=== PATIENT | female | born 1940 | race Caucasian/White ===

== ENCOUNTER 2016-06-06 13:16 | Emergency (ER) | payer OTHER ==
[2016-06-06 13:35] VITALS: RESP 18
--- NOTE | 2016-06-06 14:11 | EDPHY ---
HPI/HX/ROS/PE/MDM Narrative: Chief complaint: Fall HPI: 76-year-old woman who tripped and fell at 10:30 a.m. this morning, landing on her arms and face. She did have some epistaxis which has since stopped. She is developed over the course of last couple hours some pain in her left elbow, left wrist, and left knee. She also has an injury to her mouth and pain on her nose. No headache. She had no loss of consciousness. She does not take any anticoagulants. No nausea or vomiting. No hearing or vision changes. No neck pain, numbness or tingling. No chest pain shortness of breath. No abdominal pain. She has been ambulating with some mild discomfort in her left knee and right foot without difficulty. ROS: 10 point Review of Systems is negative except as noted in the HPI. Physical exam: Gen: Awake, Alert, No Distress HEENT: Nose: Dry blood in bilateral nares, there is some swelling at the nasal bridge with a small abrasion. No active bleeding Eyes: PERRLA, EOMI Mouth: Moist mucosa swelling of her left lower lip with out laceration. Neck: Supple, no JVD, nontender, full range of motion without pain Chest: nontender, lungs clear to auscultation Heart: S1, S2 normal, no murmur Abd: Soft, non-tender, no guarding Back: no CVA tenderness, no midline tenderness Ext: no edema, left olecranon tenderness, decreased range of motion secondary to pain, left radial head tenderness, decreased range of motion without pain, left patellar tenderness, full range of motion knee without significant discomfort past 45. Skin: no rash Neuro: CN II-XII intact, Sensation grossly intact, Strength 5/5 in bilateral upper and lower extremities ED Course: Left wrist x-ray, no acute deformity, chronic appearing changes in the left hand. Left elbow x-ray, no acute deformity Left knee x-ray, no acute deformity 76-year-old status post mechanical fall. She is complaining primarily of left elbow pain with some mild left wrist pain and knee pain. She has some old chronic changes on her left hand x-ray otherwise nothing acute. She is ambulating unassisted in the department. She has some swelling deformity her nose is possibly might recommend the nasal fracture, however we have discussed imaging the patient does not want a CT scan or any other imaging of her nose at this time this is as she agrees this will not change our management. Will discharge with analgesia. Follow up with primary care physician in 3-4 days. General Time Seen by Provider: 06/06/16 13:53 Initial Vital Signs: Initial Vital Signs Temperature (C) 36.6 C 06/06/16 13:31 Heart Rate 66 06/06/16 13:31 Respiratory Rate 18 06/06/16 13:31 Blood Pressure 152/81 H 06/06/16 13:31 O2 Sat (%) 93 06/06/16 13:31 O2 Delivery Mode Room Air Allergies/Adverse Reactions: SOME ANTIBIOTIC Allergy (Uncoded 06/06/16 13:38) Home Medications: Medication Instructions Recorded Actos 06/06/16 Amlodipine Besylate 06/06/16 FENOFIBRATE 06/06/16 Levothyroxine 06/06/16 Losartan Potassium 06/06/16 Metformin HCl 06/06/16 Vytorin 06/06/16 Departure - Departure Disposition: Home, Routine, Self-Care Clinical Impression: Nasal contusion, Elbow contusion, Wrist pain, Knee contusion, Fall Condition: Good Instructions: Nasal Contusion (ED), Contusion in Adults (ED), Wrist Sprain (ED) , Fall Prevention (ED) Additional Instructions: You may take ibuprofen and acetaminophen as needed for pain. Follow up with her primary care physician and 3-4 days for re-evaluation. Return emergency depart for increasing pain, numbness, weakness, difficulty walking, or any other concerns. Referrals: Reece Barth MD [Primary Care Provider] - As per Instructions
[2016-06-06 15:42] VITALS: BP 137/60; PULSE 70; TEMP 97.7; O2SAT 92
--- NOTE | 2016-06-06 16:40 | DX ---
Left elbow, 3 views. History: Trauma, pain pain s/p fall Comparison examination:none available Findings: Longitudinal nondisplaced fracture involves the left radial head along the lateral margin. There is intra-articular extension. Associated hemarthrosis. No other fracture identified. Impression: Nondisplaced left radial head fracture.
--- NOTE | 2016-06-06 16:41 | DX ---
Wrist Minimum of 3 Views Left History: Trauma. Pain. Comparison exam: None available. Findings: On the lateral radiograph, there is a 9 mm fragment dorsal to the carpus with soft tissue s welling compatible with an acute avulsion fracture, likely arising from the triquetrum. No additional carpal fracture identified. Distal radius and ulna appear normal. 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 Impression: 9 mm avulsion fracture dorsal the carpus with soft tissue swelling, likely arising from the triquetrum.
--- NOTE | 2016-06-06 16:42 | DX ---
Knee 4 or More Views Left History: pain s/p fall Comparison exam: None available. Findings: No fracture identified. No joint effusion. Mild degenerative changes are present in the med ial and patellofemoral compartments. Impression: Degenerative changes. No fracture identified.
== END 2016-06-06 15:55 | disposition home or self-care (01) ==
DX: S00.33XA Contusion of nose, initial encounter (principal); S50.02XA Contusion of left elbow, initial encounter; S80.02XA Contusion of left knee, initial encounter; S00.31XA Abrasion of nose, initial encounter; S69.92XA Unspecified injury of left wrist, hand and finger(s), initial encounter; W01.0XXA Fall on same level from slipping, tripping and stumbling without subsequent striking against object, initial encounter

== ENCOUNTER → 2018-03-22 | Outpatient (CLI) | payer OTHER | LOC: FIMAGING 12:28 | PROVIDERS: ATTEND Internal Medicine | DX: Z12.31 Encounter for screening mammogram for malignant neoplasm of breast (principal) ==

== ENCOUNTER → 2018-04-04 | Outpatient (CLI) | payer OTHER ==
[~2018-04-04] MED LIST: IOPAMIDOL (ISOVUE-300) 100 ML BTL ONE
== END ==
LOC: CIMAGING 09:49
PROVIDERS: ATTEND Internal Medicine Gastroenterology
DX: R93.5 Abnormal findings on diagnostic imaging of other abdominal regions, including retroperitoneum (principal); R10.32 Left lower quadrant pain; K86.9 Disease of pancreas, unspecified; I70.0 Atherosclerosis of aorta
CPT/HCPCS: 74177; Q9967; 82565-PO

== ENCOUNTER 2018-07-03 09:49 | Inpatient (IN) | payer MEDICARE, OTHER ==
[2018-07-03] MEDS ORDERED: LR 1,000 ML IV ONE (10:00)
[2018-07-03] MEDS ORDERED: LIDOCAINE 1% 2 ML INJ ID PRN (10:00)
[2018-07-03] MEDS ORDERED: cefOXitin SODIUM 2 GM in NS 100 ML IV ONE (10:00)
[2018-07-03] MEDS ORDERED: BUPIVACAINE 0.5% 30 ML SDV ONE (10:03)
--- NOTE | 2018-07-03 11:30 | PDHPUP ---
History & Physical Update H&P update statement: This history and physical update is based on an assessment of the patient which was completed after admission or registration (within 24 hours), but prior to the surgery/procedure. H&P update: H&P reviewed & patient examined, no change in patient's condition since H&P completed
[2018-07-03] MEDS ORDERED: MIDAZOLAM 2 MG/2 ML VIAL IVP ONE (11:51)
--- NOTE | 2018-07-03 11:51 | PDANEPAE ---
ANE History of Present Illness mesenteric mass, lap poss open resection of the mass ANE Past Medical History - Cardiovascular History Hx Hypertension: Yes Hx Arrhythmias: No Hx Chest Pain: Yes Hx Coronary Artery / Peripheral Vascular Disease: No Hx CHF / Valvular Disease: No Hx Palpitations: No Cardiovascular History Comment: chest pain when anxious - Pulmonary History Hx COPD: No Hx Asthma/Reactive Airway Disease: Yes Hx Recent Upper Respiratory Infection: Yes Hx Oxygen in Use at Home: Yes O2 in Use at Home (L/minute): 1.5 L Hx Sleep Apnea: Yes Sleep Apnea Screening Result - Last Documented: Positive Pulmonary History Comment: Gets bronchitis frequently - Neurologic History Hx Cerebrovascular Accident: No Hx Seizures: No Hx Dementia: No - Endocrine History Hx Diabetes: Yes Endocrine History Comment: Type 2 DM - Renal History Hx Renal Disorders: No - Liver History Hx Hepatic Disorders: No - Neurological & Psychiatric Hx Hx Neurological and Psychiatric Disorders: Yes Neurological / Psychiatric History Comment: Anxiety - Cancer History Hx Cancer: No - Congenital Disorder History Hx Congenital Disorders: No - GI History Hx Gastrointestinal Disorders: Yes Gastrointestinal History Comment: Colon polyps, hx of diverticulitis - Surgical History Prior Surgeries: open rui. open appy. tonsillectomy. TAHBSO ANE Review of Systems Review of Systems: - Exercise capacity METS (RN): 4 METS ANE Patient History - Allergies Allergies/Adverse Reactions: SOME ANTIBIOTIC Allergy (Uncoded 06/06/16 13:38) - Home Medications Home Medications: Actos 06/06/16 [Last Taken 07/02/18] Amlodipine Besylate 06/06/16 [Last Taken 07/02/18] Levothyroxine 06/06/16 [Last Taken 07/02/18] Metformin HCl 06/06/16 [Last Taken 07/02/18] DIAZEPAM PRN 07/03/18 [Last Taken 1 Week Ago ~06/26/18] Ezetimibe 07/03/18 [Last Taken 07/02/18] Lisinopril 07/03/18 [Last Taken 07/02/18] Paxil 07/03/18 [Last Taken 07/02/18] - NPO status NPO Since - Liquids (Date): 07/02/18 NPO Since - Liquids (Time): 23:30 NPO Since - Solids (Date): 07/01/18 - Smoking Hx Smoking Status: Never smoked - Family Anes Hx Family Hx Anesthesia Complications: none known ANE Labs/Vital Signs - Vital Signs Blood Pressure: 132/75 Heart Rate: 84 Respiratory Rate: 18 O2 Sat (%): 90 Height: 157.48 cm Weight: 90.718 kg ANE Physical Exam - Airway Neck exam: FROM Mallampati Score: Class 2 Mouth exam: normal dental/mouth exam - Pulmonary Pulmonary: no respiratory distress, no rales or rhonchi - Cardiovascular Cardiovascular: regular rate and rhythym, no murmur, rub, or gallop - ASA Status ASA Status: III ANE Anesthesia Plan Anesthesia Plan: general endotracheal anesthesia Regional Anesthesia: single shot NB Total IV Anesthesia: No
[2018-07-03 11:53] LABS: PLATELET COUNT 248 10^3/uL (150-400)
[2018-07-03] MEDS ORDERED: ROCURONIUM 100 MG/10 ML VIAL ONE (12:17)
[2018-07-03] MEDS ORDERED: fentaNYL 100 MCG/2 ML INJ ONE ×2 (12:17→13:03)
[2018-07-03] MEDS ORDERED: PROPOFOL 200 MG/20 ML VIAL ONE (12:17)
[2018-07-03] MEDS ORDERED: PHENYLEPHRINE HCL 100 MCG/ML SYR ONE (12:17)
[2018-07-03] MEDS ORDERED: LIDOCAINE 2% 100 MG/5 ML SYR ONE (12:17)
--- NOTE | 2018-07-03 12:36 | PDANEPAE ---
ANE Past Medical History - Cardiovascular History Hx Hypertension: Yes Hx Arrhythmias: No Hx Chest Pain: Yes Hx Coronary Artery / Peripheral Vascular Disease: No Hx CHF / Valvular Disease: No Hx Palpitations: No Cardiovascular History Comment: chest pain when anxious - Pulmonary History Hx COPD: No Hx Asthma/Reactive Airway Disease: Yes Hx Recent Upper Respiratory Infection: Yes Hx Oxygen in Use at Home: Yes O2 in Use at Home (L/minute): 1.5 L Hx Sleep Apnea: Yes Sleep Apnea Screening Result - Last Documented: Positive Pulmonary History Comment: Gets bronchitis frequently - Neurologic History Hx Cerebrovascular Accident: No Hx Seizures: No Hx Dementia: No - Endocrine History Hx Diabetes: Yes Endocrine History Comment: Type 2 DM - Renal History Hx Renal Disorders: No - Liver History Hx Hepatic Disorders: No - Neurological & Psychiatric Hx Hx Neurological and Psychiatric Disorders: Yes Neurological / Psychiatric History Comment: Anxiety - Cancer History Hx Cancer: No - Congenital Disorder History Hx Congenital Disorders: No - GI History Hx Gastrointestinal Disorders: Yes Gastrointestinal History Comment: Colon polyps, hx of diverticulitis - Surgical History Prior Surgeries: open rui. open appy. tonsillectomy. TAHBSO ANE Review of Systems Review of Systems: - Exercise capacity METS (RN): 4 METS ANE Patient History - Allergies Allergies/Adverse Reactions: SOME ANTIBIOTIC Allergy (Uncoded 06/06/16 13:38) - Home Medications Home Medications: Actos 06/06/16 [Last Taken 07/02/18] Amlodipine Besylate 06/06/16 [Last Taken 07/02/18] Levothyroxine 06/06/16 [Last Taken 07/02/18] Metformin HCl 06/06/16 [Last Taken 07/02/18] DIAZEPAM PRN 07/03/18 [Last Taken 1 Week Ago ~06/26/18] Ezetimibe 07/03/18 [Last Taken 07/02/18] Lisinopril 07/03/18 [Last Taken 07/02/18] Paxil 07/03/18 [Last Taken 07/02/18] - NPO status NPO Since - Liquids (Date): 07/02/18 NPO Since - Liquids (Time): 23:30 NPO Since - Solids (Date): 07/01/18 - Smoking Hx Smoking Status: Never smoked - Family Anes Hx Family Hx Anesthesia Complications: none known ANE Labs/Vital Signs - Vital Signs Blood Pressure: 132/75 Heart Rate: 84 Respiratory Rate: 18 O2 Sat (%): 90 Height: 157.48 cm Weight: 90.718 kg
[2018-07-03] MEDS ORDERED: ROPIVACAINE HCL 150 MG/30 ML INJ ONE (14:23)
[2018-07-03] MEDS ORDERED: fentaNYL 100 MCG/2 ML INJ IVP PRN (14:49)
[2018-07-03] MEDS ORDERED: oxyCODONE IR 5 MG TAB PO PRN (14:49)
[2018-07-03] MEDS ORDERED: NALOXONE HCL 0.4 MG/ML INJ IVP PRN ×2 (14:49→15:19)
[2018-07-03] MEDS ORDERED: DIAZEPAM 5 MG/ML 1 ML SYR IVP PRN (14:49)
[2018-07-03] MEDS ORDERED: HYDROmorphONE/DILAUDID 2 MG/ML INJ IVP PRN (14:49)
[2018-07-03] MEDS ORDERED: ACETAMINOPHEN 500 MG TAB PO PRN (14:49)
[2018-07-03] MEDS ORDERED: MEPERIDINE 25 MG/0.5 ML AMP IVP PRN (14:49)
[2018-07-03] MEDS ORDERED: LR 500 ML IV PRN (14:49)
[2018-07-03] MEDS ORDERED: HYDROmorphONE/DILAUDID 6 MG/30 ML PCA IV PRN (15:19)
[2018-07-03] MEDS ORDERED: ONDANSETRON 4 MG/2 ML VIAL IVP PRN (15:24)
[2018-07-03] MEDS ORDERED: OXYCODONE/APAP 5/325 TAB PO PRN (15:24)
[2018-07-03] MEDS ORDERED: D50W 25 GM/50 ML SYR IVP PRN (15:26)
--- NOTE | 2018-07-03 15:26 | POSTANESTH ---
Post Anesthetic Evaluation Cardiovascular Status: Normal, Stable Respiratory Status: Normal, Stable Level of Consciousness/Mental Status: Can Participate in Eval, Alert and Oriented Pain Control: Adequate, Prn Tx Ordered Nausea/Vomiting Control: Adequate, Prn Tx Ordered Complications Possibly Related to Anesthesia: None Noted (Bilat TAP blocks with Chp, US, good visualization of 40ml .25% Rop used. Tolerated well, no pain in PACU)
[2018-07-03] MEDS: PROMETHAZINE HCL 25 MG/ML INJ IVP PRN ×2 (15:28→15:46)
--- NOTE | 2018-07-03 15:31 | POSTOPPROG ---
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
--- NOTE | 2018-07-03 17:30 | PDMN ---
Medical Necessity Medical necessity: Pt meets inpt criteria per MD order [facility] [place] [facility], Bowel Surgery : Colectomy, Partial, with or without Ostomy, 4 days, [facility] IP only list. 78 y/o w/ mesenteric mass admitted for expl laparoscopy, laparotomy, en bloc resection of mesenteric mass w/sm bowel resection, L partial colectomy, and post-op care, anticipate>2MN. Surgery pre-authed for inpt.
[2018-07-03] MEDS: KETOROLAC 15 MG/1 ML SDV IVP SCH ×3 (17:47→23:50)
[2018-07-03] MEDS: NS 1,000 ML IV SCH (18:11)
[2018-07-03] MEDS: INSULIN LISPRO 100 UNIT/ML SC SCH (18:50)
[2018-07-03] MEDS: DOCUSATE SODIUM 100 MG CAP PO SCH (19:48)
[2018-07-03] MEDS: FAMOTIDINE 20 MG/NACL 50 ML IV SCH (19:48)
[2018-07-03] MEDS: METOCLOPRAMIDE 10 MG/2 ML VIAL IV SCH (23:50)
[2018-07-04] MEDS: KETOROLAC 15 MG/1 ML SDV IVP SCH ×3 (05:36→17:30)
[2018-07-04] MEDS: METOCLOPRAMIDE 10 MG/2 ML VIAL IV SCH ×3 (05:36→17:30)
[2018-07-04] MEDS: NS 1,000 ML IV SCH ×2 (05:37→15:36)
[2018-07-04] MEDS: INSULIN LISPRO 100 UNIT/ML SC SCH ×3 (08:35→18:00)
[2018-07-04] MEDS ORDERED: ENOXAPARIN 40 MG/0.4 ML SYR SC SCH (09:00)
[2018-07-04] MEDS: FAMOTIDINE 20 MG/NACL 50 ML IV SCH ×2 (09:29→21:24)
[2018-07-04] MEDS: DOCUSATE SODIUM 100 MG CAP PO SCH ×2 (09:29→21:24)
--- NOTE | 2018-07-04 09:39 | SOAPPROG ---
SOAP Progress Note Assessment/Plan: Assessment/plan: 78 y/o F s/p ex laparoscopy, laparotomy, en bloc resection of mesenteric mass with small bowel resection and left partial colectomy POD #1 Path pending Pain controlled with toradol. Hasn't used iv dilaudid or oral percocet yet. Get oob. Ok to have sips of clears and ice chips. D/c holland this am. VTE ppx: lovenox ordered. S: No complaints. Pain controlled with toradol alone. O: Alert Afebrile VSS RRR CTAB Abdomen: soft, attp, nondistended, incision well dressed, +BS 07/04/18 09:36 Objective: Vital Signs Temp Pulse Resp BP Pulse Ox 36.8 C 78 14 129/71 H 95 07/04/18 08:07 07/04/18 08:07 07/04/18 08:07 07/04/18 08:07 07/04/18 08:07 Laboratory Results 07/04/18 05:20 07/04/18 05:20 07/03/18 07/04/18 07/05/18 05:59 05:59 05:59 Intake Total 1860 Output Total 685 Balance 1175 ICD10 Worksheet Patient Problems: Problems Problem Status Onset Clostridium difficile colitis Active
--- NOTE | 2018-07-04 19:31 | GOP ---
[f rep st] OPERATIVE REPORT DATE OF OPERATION: 07/03/2018 SURGEON: Kelvin Felix MD FABRIC PATTERN GRADER: Kandace Alcaraz PA-C ANESTHESIOLOGIST: Mary Anne Encarnacion DO PREOPERATIVE DIAGNOSIS: Mesenteric mass and umbilical hernia. 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 PROCEDURE PERFORMED: 1. Laparoscopy. 2. Laparotomy with left colectomy with splenic flexure mobilization and small-bowel resection with r esection of the mesenteric tumor and umbilical hernia repair. FINDINGS: Patient was found to have a 6 cm mass in the left colon mesentery with some attached small bowel and possible metastatic implant onto that small bowel. No other evidence of tumor throughout the abdomen. She did have diffuse adhesions preventing successful laparoscopy, and she had a small l ess than 1 cm umbilical hernia defect. ESTIMATED BLOOD LOSS: Less than 25 cc. DESCRIPTION OF PROCEDURE: The patient was taken to the operating room where she received satisfactor y general endotracheal anesthesia by Dr. Encarnacion. She was placed in the supine position, prepped and d raped in the usual sterile fashion. A periumbilical incision was made. A Veress needle was inserted. Pneumoperitoneum was established. Trocar was introduced. Laparoscope introduced. Marked adhesions were encountered. The entire omen robi and colon were attached to the anterior abdominal wall throughout the whole space. Our trocar wing d passed safely through the omentum, but there was no safe place to put another trocar. It was elect ed to convert to an open procedure at that point. Midline abdominal incision was made and carried through the linea alba. The abdomen was carefully en tered. Adhesions were tediously taken down. The omentum was dissected off the anterior abdominal wa ll and freed up from the pelvis so that the colon could be retracted back up into the upper abdomen. This allowed access to the retroperitoneum and the palpable tumor. There was an area of small bowel attachment to the tumor in the left colon mesentery. The left colon was mobilized by dividing the l ateral peritoneal reflection extending it up around the splenic flexure and across into the left sharma sverse colon, dissecting it away from the lower pole of the spleen and partially dividing portions of the omentum away from the colon wall, and retroperitoneally, the mesentery was elevated up and rotat ed medially over toward the ureter. The ureter and kidney were left in place retroperitoneally. After the tumor was adequately mobilized and appeared to be resectable, then, the small bowel crop or grain farmer d to the tumor was divided above and below this attachment with the PATTI stapler and the mesentery was divided with the Harmonic scalpel. The mesentery around the tumor was then divided with the Harmoni c scalpel and/or hemoclips with complete circumferential removal of the mass. This was removed, but it left a section of colon that was concerning for potential ischemia, so that segment of approximate ly 6 to 7 inches of left colon was divided with a PATTI staplers, and that specimen was removed as well , along with tumor. Colon anastomosis was made in an end-to-end fashion in 2 layers using 3-0 silks and 3-0 Vicryl interrupted for the anterior and posterior layers and a running inner layer of 3-0 Bashir ryl creating a good 3 fingerbreadth anastomosis. The mesentery was approximated where possible with a running 3-0 Vicryl suture. The small bowel was then reconnected using a PATTI stapler and a cross ap plication of the stapler for closure of the enterocyte. The mesentery was closed with a running 3-0 Vicryl. Suture line was reinforced with interrupted 3-0 Vicryl sutures, and the suture line was imbr icated with a running 3-0 Vicryl suture. Wound was irrigated. Hemostasis appeared to be adequate. The remainder of the abdominal exploration revealed no evidence of metastatic disease, although the l iver could not be fully evaluated because of adhesions from her previous cholecystectomy. Clean Closure protocol was used with new gloves and towels, instruments, and gowns. The abdomen was closed with a running #1 PDS suture for the linea alba, reinforced periodically with #1 Vicryl interr upted sutures. Wound was infiltrated with 0.5% Marcaine. Skin was closed with skin merari. She to lerated the procedure well. She was taken to recovery room in good condition. COMPLICATIONS: There were no complications. /[id number]/MODL
[2018-07-04] MEDS ORDERED: CEPACOL LOZENGE PO PRN (21:12)
[2018-07-05] MEDS: KETOROLAC 15 MG/1 ML SDV IVP SCH ×4 (00:53→18:10)
[2018-07-05] MEDS: NS 1,000 ML IV SCH ×2 (00:53→11:20)
[2018-07-05] MEDS: METOCLOPRAMIDE 10 MG/2 ML VIAL IV SCH ×4 (00:53→18:09)
[2018-07-05] MEDS: INSULIN LISPRO 100 UNIT/ML SC SCH ×3 (08:16→18:13)
[2018-07-05] MEDS: FAMOTIDINE 20 MG/NACL 50 ML IV SCH ×2 (08:46→21:34)
[2018-07-05] MEDS: ENOXAPARIN 40 MG/0.4 ML SYR SC SCH (08:46)
[2018-07-05] MEDS: DOCUSATE SODIUM 100 MG CAP PO SCH ×2 (08:46→21:34)
--- NOTE | 2018-07-05 09:06 | SOAPPROG ---
SOAP Progress Note Assessment/Plan: Assessment/plan: 78 y/o F s/p ex laparoscopy, laparotomy, en bloc resection of mesenteric mass with small bowel resection and left partial colectomy POD #1 Path pending Pain controlled with toradol. Hasn't used iv dilaudid or oral percocet yet. Get oob. Advance to clears. VTE ppx: lovenox ordered. S: No complaints. Pain controlled with toradol alone. Got up and walked yesterday. O: Alert Afebrile VSS RRR CTAB Abdomen: soft, attp, nondistended, incision well dressed, +BS 07/05/18 09:06 Objective: Vital Signs Temp Pulse Resp BP Pulse Ox 36.8 C 57 L 16 117/64 94 07/05/18 08:00 07/05/18 08:00 07/05/18 08:00 07/05/18 08:00 07/05/18 08:00 Laboratory Results 07/04/18 05:20 07/04/18 05:20 07/04/18 07/05/18 07/06/18 05:59 05:59 05:59 Intake Total 1860 250 Output Total 589 620 400 Balance 1175 -470 -150 ICD10 Worksheet Patient Problems: Problems Problem Status Onset Clostridium difficile colitis Active
[2018-07-05] MEDS ORDERED: DIAZEPAM 5 MG TAB PO PRN (10:49)
[2018-07-05] MEDS ORDERED: LORazepam 1 MG TAB PO PRN (10:49)
[2018-07-05] MEDS: LOSARTAN/HCTZ 50/12.5 1 TAB PO SCH (12:00)
[2018-07-05] MEDS: DICLOFENAC SODIUM 1% 100 GM GEL TP SCH ×3 (12:42→21:59)
[2018-07-05] MEDS: metFORMIN SR 500 MG TAB PO SCH ×2 (13:27→17:58)
--- NOTE | 2018-07-05 18:03 | ASMTCMCOM ---
CM Note CM Note Notes: Met with pt and spoke to pt's son, request resources for non medical home care. CM gave a few options to son on phone, will contact [facility] for pt in am. Otherwise no therapies ordered. DC Plan: Home Date Signed: 07/05/2018 06:03 PM Electronically Signed By:Rosalina Leung RN
[2018-07-05] MEDS: MONTELUKAST SODIUM 10 MG TAB PO SCH (18:09)
[2018-07-05] MEDS: NIACIN ER 500 MG TAB.ER PO SCH (21:34)
[2018-07-05] MEDS: TRIAMCINOLONE 0.1% 15 GM CRTUBE TP SCH (22:01)
[2018-07-06] MEDS: METOCLOPRAMIDE 10 MG/2 ML VIAL IV SCH ×4 (00:01→18:18)
[2018-07-06] MEDS: KETOROLAC 15 MG/1 ML SDV IVP SCH ×5 (00:01→23:39)
[2018-07-06] MEDS: LEVOTHYROXINE 75 MCG TAB PO SCH (05:25)
[2018-07-06] MEDS: DICLOFENAC SODIUM 1% 100 GM GEL TP SCH ×4 (05:30→20:57)
[2018-07-06] MEDS: INSULIN LISPRO 100 UNIT/ML SC SCH ×3 (08:20→18:18)
[2018-07-06] MEDS: metFORMIN SR 500 MG TAB PO SCH ×3 (08:21→18:17)
[2018-07-06] MEDS: SPIRONOLACTONE 100 MG TAB PO SCH (08:33)
[2018-07-06] MEDS: LOSARTAN/HCTZ 50/12.5 1 TAB PO SCH (08:33)
[2018-07-06] MEDS: PRAVASTATIN SODIUM 20 MG TAB PO SCH (08:34)
[2018-07-06] MEDS: EZETIMIBE 10 MG TAB PO SCH (08:34)
[2018-07-06] MEDS: PIOGLITAZONE HCL 15 MG TAB PO SCH (08:34)
[2018-07-06] MEDS: amLODIPine BESYLATE 5 MG TAB PO SCH (08:35)
[2018-07-06] MEDS: DOCUSATE SODIUM 100 MG CAP PO SCH ×2 (08:35→20:54)
[2018-07-06] MEDS: HYDROCHLOROTHIAZIDE 25 MG TAB PO SCH (08:35)
[2018-07-06] MEDS: ENOXAPARIN 40 MG/0.4 ML SYR SC SCH (08:35)
[2018-07-06] MEDS: FAMOTIDINE 20 MG/NACL 50 ML IV SCH (08:35)
--- NOTE | 2018-07-06 08:46 | SOAPPROG ---
ROCÍO Progress Note Assessment/Plan: Assessment: Plan: 07/06/18 08:45 Said hi to patient. She looks great and is doing exceptionally well. Objective: Vital Signs Temp Pulse Resp BP Pulse Ox 36.8 C 66 16 115/70 97 07/06/18 07:15 07/06/18 07:15 07/06/18 07:15 07/06/18 07:15 07/06/18 07:15 Laboratory Results 07/04/18 05:20 07/04/18 05:20 07/05/18 07/06/18 07/07/18 05:59 05:59 05:59 Intake Total 950 Output Total 470 1000 Balance -470 -50 ICD10 Worksheet Patient Problems: Problems Problem Status Onset Clostridium difficile colitis Active
[2018-07-06] MEDS ORDERED: PARoxetine HCL 20 MG TAB PO SCH (09:00)
[2018-07-06] MEDS: Fenofibrate [Fenofibrate] 160 MG PO SCH (10:18)
[2018-07-06] MEDS: TRIAMCINOLONE 0.1% 15 GM CRTUBE TP SCH ×2 (10:18→20:56)
[2018-07-06] MEDS: ALBUTEROL 3 ML DEYVIAL IH PRN (15:57)
[2018-07-06] MEDS: MONTELUKAST SODIUM 10 MG TAB PO SCH (18:17)
[2018-07-06] MEDS: NIACIN ER 500 MG TAB.ER PO SCH (20:53)
[2018-07-06] MEDS: FAMOTIDINE 20 MG TAB PO SCH (20:53)
[2018-07-07] MEDS: METOCLOPRAMIDE 10 MG/2 ML VIAL IV SCH ×4 (00:42→18:37)
[2018-07-07] MEDS: DICLOFENAC SODIUM 1% 100 GM GEL TP SCH ×4 (05:01→21:11)
[2018-07-07] MEDS: KETOROLAC 15 MG/1 ML SDV IVP SCH ×3 (05:57→18:37)
[2018-07-07] MEDS: LEVOTHYROXINE 75 MCG TAB PO SCH (05:58)
[2018-07-07] MEDS: INSULIN LISPRO 100 UNIT/ML SC SCH ×3 (09:09→18:30)
[2018-07-07] MEDS: PRAVASTATIN SODIUM 20 MG TAB PO SCH (09:47)
[2018-07-07] MEDS: amLODIPine BESYLATE 5 MG TAB PO SCH (09:47)
[2018-07-07] MEDS: metFORMIN SR 500 MG TAB PO SCH ×3 (09:47→18:36)
[2018-07-07] MEDS: PIOGLITAZONE HCL 15 MG TAB PO SCH (09:47)
[2018-07-07] MEDS: LOSARTAN/HCTZ 50/12.5 1 TAB PO SCH (09:47)
[2018-07-07] MEDS: SPIRONOLACTONE 100 MG TAB PO SCH (09:48)
[2018-07-07] MEDS: FAMOTIDINE 20 MG TAB PO SCH ×2 (09:48→21:10)
[2018-07-07] MEDS: DOCUSATE SODIUM 100 MG CAP PO SCH ×2 (09:48→21:10)
[2018-07-07] MEDS: HYDROCHLOROTHIAZIDE 25 MG TAB PO SCH (09:48)
[2018-07-07] MEDS: EZETIMIBE 10 MG TAB PO SCH (09:48)
[2018-07-07] MEDS: Fenofibrate [Fenofibrate] 160 MG PO SCH (09:48)
[2018-07-07] MEDS: ENOXAPARIN 40 MG/0.4 ML SYR SC SCH (09:48)
[2018-07-07] MEDS: TRIAMCINOLONE 0.1% 15 GM CRTUBE TP SCH ×2 (09:49→21:12)
--- NOTE | 2018-07-07 11:43 | SOAPPROG ---
SOAP Progress Note Assessment/Plan: Assessment/Plan: 78yo F POD#3 s/p ex laparoscopy, laparotomy, en bloc resection of mesenteric mass with small bowel resection and left partial colectomy Path pending Pain controlled with PO pain meds Advanced to regular diet Passing flatus and having bowel movements Ambulation, PT and OT May shower Dispo: Home in a.m.. Follow up with Dr. Felix in 1 week for staple removal. Seen with Dr. Seth S: No complaints this morning, pain controlled, no nausea, full return of bowel function. O: Lying in bed, comfortable, no acute distress No increased work of breathing Bowel sounds present, abdomen soft, nondistended, nontender. Incision clean, dry and intact without evidence of infection, merari in place. Objective: Vital Signs Temp Pulse Resp BP Pulse Ox 36.6 C 67 16 141/69 H 98 07/07/18 08:00 07/07/18 08:00 07/07/18 08:00 07/07/18 08:00 07/07/18 08:00 Laboratory Results 07/04/18 05:20 07/04/18 05:20 07/06/18 07/07/18 07/08/18 05:59 05:59 05:59 Intake Total 950 1000 Output Total 1000 1000 500 Balance -50 0 -500 ICD10 Worksheet Patient Problems: Problems Problem Status Onset Clostridium difficile colitis Active
[2018-07-07] MEDS ORDERED: ACETAMINOPHEN 325 MG TAB PO PRN (15:40)
--- NOTE | 2018-07-07 16:26 | ASMTCMCOM ---
CM Note CM Note Notes: Pt here for surgery to remove mass. No therapies ordered and pt ambulates independently, she lives at home with her who has dementia but does acknowledge she needs some non skilled home care. CM contacted [facility] who will coordinate with family. DC Plan: Home w/ non skilled HC Date Signed: 07/07/2018 04:25 PM Electronically Signed By:Rosalina Leung RN
[2018-07-07] MEDS: MONTELUKAST SODIUM 10 MG TAB PO SCH (18:36)
[2018-07-07] MEDS: NIACIN ER 500 MG TAB.ER PO SCH (21:10)
[2018-07-08] MEDS: KETOROLAC 15 MG/1 ML SDV IVP SCH ×3 (00:42→12:41)
[2018-07-08] MEDS: METOCLOPRAMIDE 10 MG/2 ML VIAL IV SCH ×3 (00:43→12:27)
[2018-07-08] MEDS: DICLOFENAC SODIUM 1% 100 GM GEL TP SCH ×2 (06:09→12:01)
[2018-07-08] MEDS: LEVOTHYROXINE 75 MCG TAB PO SCH (06:19)
[2018-07-08 08:44] VITALS: BP 138/62
[2018-07-08] MEDS: INSULIN LISPRO 100 UNIT/ML SC SCH ×2 (09:03→12:01)
--- NOTE | 2018-07-08 09:07 | SOAPPROG ---
SOAP Progress Note Assessment/Plan: Assessment/Plan: 78yo F POD#5 s/p ex laparoscopy, laparotomy, en bloc resection of mesenteric mass with small bowel resection and left partial colectomy Path pending Pain controlled with PO pain meds Advanced to regular diet Passing flatus and having bowel movements Ambulation, PT and OT rec home PT/OT Wheezing prior to admit, likely exac by atelectasis/immob. August shower Dispo: DC this am. Follow up with Dr. Felix in 1 week for staple removal. FU with PCP. S: No complaints this morning, pain controlled, no nausea, full return of bowel function. Persistent cough and wheezing, not worsening. Uses O2 at night. O: Lying in bed, comfortable, no acute distress No increased work of breathing Bowel sounds present, abdomen soft, nondistended, nontender. Incision clean, dry and intact without evidence of infection, merari in place. Wheezing L>R 07/08/18 13:45 Objective: Vital Signs Temp Pulse Resp BP Pulse Ox 36.8 C 86 18 138/62 H 94 07/08/18 08:00 07/08/18 08:00 07/08/18 08:00 07/08/18 08:00 07/08/18 08:00 Laboratory Results 07/04/18 05:20 07/04/18 05:20 07/07/18 07/08/18 07/09/18 05:59 05:59 05:59 Intake Total 1000 300 Output Total 1000 500 Balance 0 -200 ICD10 Worksheet Patient Problems: Problems Problem Status Onset Clostridium difficile colitis Active
[2018-07-08] MEDS: ENOXAPARIN 40 MG/0.4 ML SYR SC SCH (09:28)
[2018-07-08] MEDS: metFORMIN SR 500 MG TAB PO SCH ×2 (09:28→12:38)
[2018-07-08] MEDS: HYDROCHLOROTHIAZIDE 25 MG TAB PO SCH (09:29)
[2018-07-08] MEDS: EZETIMIBE 10 MG TAB PO SCH (09:29)
[2018-07-08] MEDS: PIOGLITAZONE HCL 15 MG TAB PO SCH (09:29)
[2018-07-08] MEDS: SPIRONOLACTONE 100 MG TAB PO SCH (09:29)
[2018-07-08] MEDS: PRAVASTATIN SODIUM 20 MG TAB PO SCH (09:29)
[2018-07-08] MEDS: LOSARTAN/HCTZ 50/12.5 1 TAB PO SCH (09:29)
[2018-07-08] MEDS: Fenofibrate [Fenofibrate] 160 MG PO SCH (09:29)
[2018-07-08] MEDS: amLODIPine BESYLATE 5 MG TAB PO SCH (09:29)
[2018-07-08] MEDS: FAMOTIDINE 20 MG TAB PO SCH (09:29)
[2018-07-08] MEDS: DOCUSATE SODIUM 100 MG CAP PO SCH (09:29)
[2018-07-08] MEDS: TRIAMCINOLONE 0.1% 15 GM CRTUBE TP SCH (09:30)
[2018-07-08] MEDS: ALBUTEROL 3 ML DEYVIAL IH PRN (09:46)
--- NOTE | 2018-07-08 10:59 | PDIAF ---
- Diagnosis Diagnosis: mesenteric mass Code Status: Full Code - Medication Management Discharge Medications: electronically signed and located in the Home Medication List. - Orders Services needed: Home Care, Physical Therapy, Occupational Therapy Home Care Face to Face: I certify that this patient was under my care and that I had the required [id number] encounter meeting the encounter requirements on the discharge day. My findings support the fact that the patient is homebound as defined in Home Care Face to Face Continued: CMS Chapter 7 Medicare Benefits Manual 30.1.1 , The condition of the patient is such that there exists a normal inability to leave home and consequently, leaving home would require a considerable and taxing effort. Diet Recommendation: no restrictions on diet Diet Texture: Regular Texture Diet Additional Instructions: Avoid heavy lifting, pushing or pulling greater than 10 lb for 6 weeks. Follow- up with Dr. Felix in 1 week for staple removal. May shower. Diet as tolerated. Call with worsening symptoms, questions or concerns. Make appt wit Dr. Barth. - Follow Up Care Current Providers and Referrals: Reece Barth MD [Primary Care Provider] - Kelvin Felix MD [Medical Doctor] - follow up in 1 week
--- NOTE | 2018-07-08 11:56 | ASMTLACE ---
LACE Length of stay for Answers: 4-6 days current admission Acuity / Level of Answers: Yes Care: Did the patient have an inpatient admission? Comorbidities - select Answers: Diabetes (uncontrolled or all that apply controlled) Other Notes: HTN # of Emergency department Answers: 0 visits in the last 6 months Social determinants Answers: Mental health diagnosis (anxiety, depression, pers onality disorders, etc.) Score: 12 Date Signed: 07/08/2018 11:56 AM Electronically Signed By:CECI Kauffman
--- NOTE | 2018-07-08 15:09 | ASMTDCNOTE ---
Case Management Discharge Discharge Order Complete? Answers: Yes Patient to Obtain Answers: via [facility] Transportation Arranged Answers: Family/Friends Faxed Final Orders Answers: Yes Discharge Comments Notes: Pt is discharging home today. A referral was made to [facility] for PT/OT. Discussed with pt and her is current with [facility]. Sent referral via [employer]. IM signed, copy to pt and in chart. Date Signed: 07/08/2018 03:09 PM Electronically Signed By:CECI Kauffman
--- NOTE | 2018-07-09 07:42 | GDS ---
[f rep st] DISCHARGE SUMMARY ADMITTING DIAGNOSIS: Mesenteric mass. SECONDARY DIAGNOSES: Bronchitis, diabetes, hypertension, colon polyp. REASON FOR ADMISSION: 78-year-old woman who was found to have a mesenteric mass on CT scan. She was taken to the operating room for surgical intervention, pain control, and observation. HOSPITAL COURSE: She was taken to the operating room by Dr. Felix on 07/03/2018 for exploratory lapa roscopy, convert laparotomy, with on block resection of the mesenteric mass, small-bowel resection, a nd left partial colectomy. 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 At the time of discharge pathology is pending . On postoperative day #1 her catheter was removed and she was able to void spontaneously. On posto perative day #2 she began to pass flatus and was started on a clear liquid diet. By postoperative da y #4 she was started on a regular diet. On the day of discharge her pain was well controlled with or al pain medication. She was tolerating regular diet, ambulating independently, and was ready for dis charge. CONDITION: Discharged home in stable condition. DISCHARGE MEDICATIONS: Home with new prescriptions for tramadol and refill of her albuterol inhaler. Instructed to resume home medications. Please see EMR for further detail. DISCHARGE INSTRUCTIONS AND FOLLOWUP: Avoid heavy lifting, pushing, or pulling for 6 weeks. Follow u p in 1 week for staple removal. She may shower. Diet as tolerated. Call with worsening symptoms, q uestions or concerns. I also instructed her to make an appointment with her primary care for recurre nt bronchitis and wheezing. On day of discharge she was also seen by [facility] who recommended home PT and OT which was ordered. /[id number]/MODL
--- NOTE | 2018-07-17 21:35 | PQFORM ---
PHYSICIAN QUERY FORM Needs Your Response This query form is being sent to you to assure this patient record is coded properly. Please respond to the question below: MEDICAL OFFICER PSYCHIATRY QUESTION: Hi The Pathology report is now available. 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 _Y__ Yes ___ No ___ Other (Please Specify ) ___ Unable to determine Thank You Jennifer SAUER [employer] Associate Manager INSTRUCTIONS FOR RESPONSE: Answer question by clicking on the "Edit Document" button. Move cursor to area below the stars. When complete, hit "Save." Click on the "Sign" button, then click "Sign" again. Type in your PIN and hit "Enter." Yes MTDD
== END 2018-07-08 15:51 | disposition home or self-care (01) | DRG 330 ==
LOC: F3N 09:49 → F3E 16:47
PROVIDERS: ADMIT Surgery; ATTEND Surgery
DX: C17.8 Malignant neoplasm of overlapping sites of small intestine (principal); C78.6 Secondary malignant neoplasm of retroperitoneum and peritoneum; K42.9 Umbilical hernia without obstruction or gangrene; K66.0 Peritoneal adhesions (postprocedural) (postinfection); Z53.31 Laparoscopic surgical procedure converted to open procedure; E11.9 Type 2 diabetes mellitus without complications
CPT/HCPCS: 97116-GP; 97161-GP; 97165-GO; J0694; J1650; J1885; J2001; J2250; J2370; J2405; J2550; J2704; J2765; J2795; J3010; J7613

== ENCOUNTER → 2018-09-20 | Day surgery (SDC) | payer OTHER ==
[~2018-09-20] MED LIST changes: +BUPIVACAINE 0.5% 30 ML SDV ONE; +DEXAMETHASONE 10 MG/ML VIAL IVP ONE; +FLUMAZENIL 0.5 MG/5 ML MDV IVP PRN; -IOPAMIDOL (ISOVUE-300) 100 ML BTL ONE; +LIDOCAINE 1% 5 ML SDV ONE; +MIDAZOLAM 2 MG/2 ML VIAL IVP PRN; +NALOXONE HCL 0.4 MG/ML INJ IVP PRN; +NS 1,000 ML IV ONE; +ONDANSETRON 4 MG/2 ML VIAL IVP PRN; +ONDANSETRON DISINTEGRATING 4 MG TAB PO PRN; +ceFAZolin 2 GM/DEXTROSE 100 ML IV ONE; +fentaNYL 100 MCG/2 ML INJ IVP PRN
[2018-09-20 08:48] LABS: PLATELET COUNT 237 10^3/uL (150-400)
[2018-09-20 09:08] LABS: INR 0.98 (0.83-1.16); PROTIME(PATIENT) 12.6 SEC (12.0-15.0)
--- NOTE | 2018-09-20 10:25 | PDPROPOC ---
Sedation Plan of Care Sedation Plan of Care: vital signs stable, mental status noted, patient educated of risks, benefits, alternatives, patient can tolerate sedation ASA Classification: ASA 3 Planned drugs: fentanyl, midazolam Mallampati Score: Class 2 Mallampati Reference Image: Patient passed 3-3-2 rule?: Yes
--- NOTE | 2018-09-20 10:29 | PDGENHP ---
History & Physical Chief Complaint: severe back pain History of Present Illness: L4 compression fracture x 2-3 weeks. severe pain. 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 Pertinent Past, Social, Family History: non smoker. bronchitis, HTN, hypothyroidism, hyperlipidemia, diabetes. Relevant Physical Exam: severe low back pain. no radiculopathy Cardiorespiratory Assessment: rrr, cta
--- NOTE | 2018-09-20 10:30 | PDRADPN ---
Radiology Procedure Note Date of Procedure: 09/20/18 Radiologist: Yamini Campos Anesthesia: IV Sedation Pre-op Diagnosis: L4 fracture Post-op Diagnosis: same Indication: severe pain Procedure: L4 vertebroplasty Inf/Abcess present in the surg proc area at time of surgery?: No
[2018-09-20 12:02] VITALS: BP 138/79
== END | disposition home or self-care (01) ==
LOC: FIMAGING 07:33
PROVIDERS: ATTEND Internal Medicine
PROC: 0QB03ZX Excision of Lumbar Vertebra, Percutaneous Approach, Diagnostic (ICD-10-PCS; principal; 2018-09-20 10:30)
PROC: 0QU03JZ Supplement Lumbar Vertebra with Synthetic Substitute, Percutaneous Approach (ICD-10-PCS; principal; 2018-09-20 10:30)
DX: S32.040A Wedge compression fracture of fourth lumbar vertebra, initial encounter for closed fracture (principal); X58.XXXA Exposure to other specified factors, initial encounter; I10 Essential (primary) hypertension; E03.9 Hypothyroidism, unspecified; C17.8 Malignant neoplasm of overlapping sites of small intestine; C78.6 Secondary malignant neoplasm of retroperitoneum and peritoneum
CPT/HCPCS: J0690; J1100; J2250; J2310; J3010